=== PATIENT | female | born 2005 | race Caucasian/White ===

== ENCOUNTER 2023-04-09 19:40 | Emergency (ER) | payer BC, OTHER ==
[2023-04-09] MEDS ORDERED: Ondansetron PF 4 MG/2 ML Vial ONE (20:17)
[2023-04-09 20:34] LABS: #Basophils 0.1 thou/uL (0.0-0.2); #Monocytes 1.2 thou/uL (0.11-0.59); #Neutrophils 18.4 thou/uL (1.40-6.50); %Basophils 0.3 % (0.0-1.0); %Lymphocytes 4.7 % (28.0-48.0); %Monocytes 5.8 % (0.0-4.0); %Neutrophils 88.5 % (31.0-61.0); Hematocrit 41.4 % (36.0-47.0); Hemoglobin 14.1 g/dL (12.0-16.0); Mean Corpuscular HGB CONC 34.1 g/dL (32.0-36.0); Mean Corpuscular Hemoglobin 31.8 pg (25.0-35.0); Mean Corpuscular Volume 93.5 fl (78.0-98.0); Mean Platelet Volume 12.2 fL (7.4-10.4); Platelet Count 290 10x3/uL (130-400); RBC Distribution Width 12.1 % (11.5-14.5); Red Blood Cell (RBC) Count 4.43 mill/uL (4.00-5.20); White Blood Cell (WBC) Count 20.8 10x3/uL (4.8-10.8)
[2023-04-09 20:43] LABS: Base Excess -16.6 mEq/L (-2.0 to +3.0); Calcium, Ionized (venous) 1.13 mmol/L (1.16-1.32); Chloride (VBG) 99 mmol/L (98-106); Hematocrit-VBG 45 % (36.0-47.0); Hemoglobin (Hb) 15.2 g/dL (11.7-15.5); Potassium (VBG) 5.68 mmol/L (3.70-5.30); Sodium 134 mmol/L (133-146)
[2023-04-09 20:44] LABS: BHCG - Serum Negative (NEGATIVE); Pregs Control Bar Appear? YES (CONTROL BAR)
[2023-04-09 20:45] LABS: Pregs Control Background? CLEAR/WHITE (CLR/WHITE)
[2023-04-09 20:52] LABS: Actual Bicarbonate (HCO3v) 9.6 mEq/L (22-28); pH (venous) 7.199 (7.32-7.43)
[2023-04-09 20:58] LABS: ALT (SGPT) 26 U/L (8-55); AST (SGOT) 23 U/L (5-30); Albumin 4.8 g/dL (3.5-5.0); Alkaline Phosphatase 92 U/L (40-100); BUN (Urea Nitrogen) 22 mg/dL (8.4-21.0); Bilirubin, Total 1.2 mg/dL (0.2-1.2); Calc. Creatinine Clearance 0 mL/min (70-130); Calcium 10.1 mg/dL (7.8-10.44); Chloride 100 mmol/L (98-107); Estimated GFR 57; Globulin 2.7 g/dL (2.4-3.5); Lipase Less than 4 U/L (8-78); Magnesium 2.1 mg/dL (1.7-2.2); Phosphorus 5.5 mg/dL (2.3-4.7); Potassium 5.6 mmol/L (3.5-5.1); Protein, Total 7.5 g/dL (6.0-8.3); Sodium 132 mmol/L (136-145)
[2023-04-09 20:59] LABS: Carbon Dioxide Less than 8 mmol/L (22-29); Glucose 566 mg/dL (70-105)
[2023-04-09] MEDS ORDERED: INSULIN REGULAR IN 0.9 % NACL 100 UNITS/100 ML BAG ONE (21:25)
[2023-04-09 22:12] LABS: Bacteria/HPF None Seen HPF (None Seen); Bilirubin Negative (Negative); Blood, Urine Trace (Negative); CAUTI Indications for Culture Dysuria,urgency,freq; Clarity Clear (Clear); Glucose, Urine (Dipstick) Greater than 1000 mg/dL (Negative); Ketone, Urine 100 mg/dL (Negative); Leukocyte Negative Leu/uL (Negative); Nitrite Negative (Negative); Protein, Urine (Dipstick) Negative (Neg-Trace); RBC/HPF 0-3 HPF (0-3); Specific Gravity, Urine 1.027 (1.002-1.036); Squamous Epithelial 0-3 HPF (0-3); Urobilinogen Normal mg/dL (Less than 2); WBC/HPF 0-3 HPF (0-3)
[2023-04-09 22:13] LABS: Urine Culture Reflex No No
== END 2023-04-10 00:29 | disposition short-term general hospital (02) ==
LOC: ERS 19:40 → EEVIPCON 19:40 → ERS 04-10 00:29
DX: E10.10 Type 1 diabetes mellitus with ketoacidosis without coma (principal)
CPT/HCPCS: 36416; 80053; 81001; 82010; 82805; 83690; 83735; 84100; 84703; 85025; 96361; 96365; 96366; 96375; J1815; J2405